=== PATIENT | male | born 1935 | race Caucasian/White ===

== ENCOUNTER 2018-07-07 06:21 | Day surgery (SDC) | payer BC, MEDICARE ==
[2018-07-07] MEDS ORDERED: fentaNYL 100 MCG/2 ML SDV ONE (07:13)
[2018-07-07] MEDS ORDERED: Propofol 200 MG/20 ML SDV ONE (07:14)
[2018-07-07] MEDS ORDERED: Sodium Chloride 0.9% 1,000 ML IV SCH (07:30)
[2018-07-07] MEDS ORDERED: Glycopyrrolate 0.2 MG/ML 5 ML MDV ONE (08:04)
[2018-07-07] MEDS ORDERED: Barium Sulfate 105% w/v Susp 1,900 ML Bottle RECTAL ONE (10:47)
[2018-07-07 11:25] VITALS: BP 142/73
--- NOTE | 2018-07-07 11:28 | CR ---
Barium Enema Comp CLINICAL HISTORY: Incomplete colonoscopy FINDINGS: There is retrograde flow of barium from rectum to right colon and an ileocolic anastomosis. There is no evidence of obstruction. There are a few tiny diverticula. No persistent filling defects are identified. Postevacuation film shows good clearing of left colonic contents. There is some mode rate to gaseous distention of small bowel related to colonoscopy. IMPRESSION: Right-sided ileocolic anastomosis No evidence of annular constricting lesion or persistent filling defects Minimal scattered small diverticula
--- NOTE | 2018-07-25 11:49 | OR ---
DATE OF PROCEDURE: 07/07/2018 PROCEDURES: 1. EGD. 2. Colonoscopy. FINDINGS: 1. Normal EGD. 2. Normal colonoscopy. COMPLICATIONS: None. SERVICE COUNSELOR: None. PREOPERATIVE DIAGNOSIS: Unintentional weight loss. POSTOPERATIVE DIAGNOSIS: Unintentional weight loss. RISKS: Risks, benefits, alternatives, and limitations including, but not limited to infection, bleeding, and perforation were explained to the patient, who wished to proceed. PROCEDURE IN DETAIL: The patient was placed in left lateral decubitus position. The EGD scope was introduced and advanced atraumatically to the second part of the duodenum. No abnormalities were noted. The scope was brought back and retroflexed. No hiatal hernia. No ulcerations. No significant reflux in the esophagus. The esophagus was normal. There was no evidence of old or new blood. No masses. Colonoscopy was then performed next. Digital rectal exam was performed. The scope was introduced and advanced atraumatically to the ileocecal valve. The scope was brought back to the ascending, transverse, descending colon, and retroflexed. No evidence of old or new blood. No masses. No polyps. No evidence or etiology of the unintentional weight loss. No abnormalities and retroflexed. The patient tolerated the procedure well. Dennis Haley MD /[id number]
== END 2018-07-07 11:45 | disposition home or self-care (01) ==
LOC: JP.SDS 06:21
PROVIDERS: ATTEND Surgery
DX: R63.4 Abnormal weight loss (principal); E03.9 Hypothyroidism, unspecified; I25.10 Atherosclerotic heart disease of native coronary artery without angina pectoris; I10 Essential (primary) hypertension; E78.5 Hyperlipidemia, unspecified; Z91.041 Radiographic dye allergy status; Z91.018 Allergy to other foods; R14.3 Flatulence; R10.9 Unspecified abdominal pain; E78.00 Pure hypercholesterolemia, unspecified; J44.9 Chronic obstructive pulmonary disease, unspecified; Z79.899 Other long term (current) drug therapy
CPT/HCPCS: 36415; 43235; 45378; 74176; 74270; 80048; 85025; 96360; 96361; 99284; J2704; J3010; J3490; J7030

== ENCOUNTER 2018-07-07 20:34 | Emergency (ER) | payer BC ==
[2018-07-07] MEDS ORDERED: HYDROmorphone 0.5 MG/0.5 ML Syringe IVPUSH ONE (20:59)
[2018-07-07] MEDS ORDERED: Ondansetron 4 MG/2 ML SDV IVPUSH ONE (20:59)
[2018-07-07] MEDS ORDERED: Sodium Chloride 0.9% 1,000 ML IV SCH (21:00)
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
[2018-07-07 22:10] VITALS: BP 136/53
== END 2018-07-07 22:50 | disposition home or self-care (01) ==
LOC: JP.ED 20:34
DX: R14.3 Flatulence (principal); R10.9 Unspecified abdominal pain; E78.00 Pure hypercholesterolemia, unspecified; I10 Essential (primary) hypertension; J44.9 Chronic obstructive pulmonary disease, unspecified; E03.9 Hypothyroidism, unspecified; Z79.899 Other long term (current) drug therapy
CPT/HCPCS: 36415; 74176; 80048; 85025; 96360; 96361; 99284; J7030

== ENCOUNTER 2021-01-03 22:04 | Emergency (ER) | payer BC ==
[2021-01-03] MEDS ORDERED: Sodium Chloride 0.9% 10 ML Syringe FLUSH PRN (22:42)
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
[2021-01-03] MEDS ORDERED: Lactated Ringers 1,000 ML IV ONE (23:24)
[2021-01-03] MEDS ORDERED: Acetaminophen 500 MG Tab PO ONE (23:58)
[2021-01-04 00:12] VITALS: BP 120/51; PULSE 76
== END 2021-01-04 01:00 | disposition home or self-care (01) ==
LOC: JP.ED 22:04
DX: N30.90 Cystitis, unspecified without hematuria (principal); E87.6 Hypokalemia; R19.7 Diarrhea, unspecified; I25.10 Atherosclerotic heart disease of native coronary artery without angina pectoris; E78.00 Pure hypercholesterolemia, unspecified; I10 Essential (primary) hypertension; J44.9 Chronic obstructive pulmonary disease, unspecified; E03.9 Hypothyroidism, unspecified; Z91.041 Radiographic dye allergy status; Z91.030 Bee allergy status; Z79.899 Other long term (current) drug therapy; Z79.82 Long term (current) use of aspirin; Z20.822 Contact with and (suspected) exposure to COVID-19
CPT/HCPCS: 36415; 51798; 80048; 81001; 85027; 87046; 87086; 87493; 87635; 87899; 99283; 99284; A9270; J7120; U0002

== ENCOUNTER 2021-09-15 07:41 | Day surgery (SDC) | payer BC, MEDICARE ==
[2021-09-15] MEDS ORDERED: Dextrose 5%-Lactated Ringers 1,000 ML IV SCH (07:45)
[2021-09-15] MEDS ORDERED: fentaNYL 100 MCG/2 ML SDV ONE (07:47)
[2021-09-15] MEDS ORDERED: Midazolam 1 MG/ML 2 ML SDV ONE (07:47)
[2021-09-15] MEDS ORDERED: Propofol 200 MG/20 ML SDV ONE (07:47)
[2021-09-15] MEDS ORDERED: Bupivacaine 0.5% 50 ML MDV ONE (08:18)
[2021-09-15] MEDS ORDERED: Lidocaine 1% with EPINEPHrine 1:100,000 50 ML MDV ONE (08:18)
[2021-09-15] MEDS ORDERED: Diltiazem 180 MG Cap.CD PO ONE (08:30)
[2021-09-15] MEDS ORDERED: ceFAZolin 2 GM in Premix Bag 1 BAG IV ONE (08:30)
[2021-09-15] MEDS ORDERED: Bacitracin Oint 1 GM U/D Packet ONE (10:53)
[2021-09-15 12:16] VITALS: BP 129/61; PULSE 44
--- NOTE | 2021-09-17 23:42 | OR ---
DATE OF PROCEDURE: 09/15/2021 SURGEON: Moreno Jackson MD PREOPERATIVE DIAGNOSIS: Atypical nevi involving right cheek and midback. POSTOPERATIVE DIAGNOSIS: Atypical nevi involving right cheek and midback. PROCEDURES: 1. Excision of atypical nevus, right cheek, with layered closure ([id number], [id number]). 2. Excision of atypical nevus, midback, with layered closure ([id number], [id number]). ANESTHESIA: Local plus IV sedation. INDICATION FOR PROCEDURE: This is an 86-year-old male presenting with 2 atypical nevi, one from the lower right cheek and the other in the midback. After preoperative evaluation and discussion, he wished to proceed with excision of these. Potential risks including bleeding, infection, and possible need for re-excision were gone over and the patient wishes to proceed. PROCEDURE IN DETAIL: Patient was taken to the operating room, placed in a left lateral decubitus position. The right cheek and midback areas were then both prepped and draped, and the areas anesthetized with 1% lidocaine mixed with Marcaine. Initially, the right cheek excision was addressed. Elliptical incision in the lines of skin wrinkles was then made maintaining a small margin of normal tissue around the excised lesion and this was then removed intact and the wound was then closed with some 4-0 Vicryl stitch deep and then 5-0 Prolene skin stitch. Attention was taken to the mid back area. A similar incision in the transverse orientation was made there and the incision then closed with the same set of sutures, and the dressings were then applied. The right cheek lesion had a lesion plus margin length of 3.2 cm and incision length of 3.6 cm. Mid back had a lesion plus margin length of 1.8 cm and an incision closure of 3.0 cm. There were no evident complications. Moreno Jackson MD /[id number]
== END 2021-09-15 12:40 | disposition home or self-care (01) ==
LOC: JP.SDS 07:41
PROVIDERS: ATTEND Surgery
DX: L82.0 Inflamed seborrheic keratosis (principal); L82.1 Other seborrheic keratosis; I10 Essential (primary) hypertension; I25.2 Old myocardial infarction; I25.10 Atherosclerotic heart disease of native coronary artery without angina pectoris; E78.5 Hyperlipidemia, unspecified; J43.9 Emphysema, unspecified
CPT/HCPCS: 11402; 11444; 12032; 12052; A9270; J0690; J2250; J2704; J3010; J3490; J7121

== ENCOUNTER 2022-07-02 08:16 | Day surgery (SDC) | payer BC, MEDICARE, OTHER ==
[~2022-07-02 08:16] MED LIST: Dexamethasone 4 MG/ML SDV ONE; Glycopyrrolate 0.2 MG/ML 5 ML MDV ONE; Ketorolac 30 MG/ML SDV ONE; Neostigmine Methylsulfate 1 MG/ML 5 ML Syringe ONE; Ondansetron 4 MG/2 ML SDV ONE; Propofol 200 MG/20 ML SDV ONE; Rocuronium 50 MG/5 ML Vial ONE; Succinylcholine 200 MG/10 ML MDV ONE; Sugammadex Sodium 200 MG/2 ML VIAL ONE; fentaNYL 250 MCG/5 ML SDV ONE
[2022-07-02] MEDS ORDERED: fentaNYL 100 MCG/2 ML SDV ONE (09:00)
[2022-07-02] MEDS ORDERED: Propofol 200 MG/20 ML SDV ONE (09:00)
[2022-07-02] MEDS ORDERED: Lactated Ringers 1,000 ML IV SCH (09:00)
[2022-07-02 12:06] VITALS: BP 133/55; PULSE 80
== END 2022-07-02 12:08 | disposition home or self-care (01) ==
LOC: JP.SDS 08:16
PROVIDERS: ATTEND Family Medicine
DX: K29.40 Chronic atrophic gastritis without bleeding (principal); I10 Essential (primary) hypertension; I25.10 Atherosclerotic heart disease of native coronary artery without angina pectoris; I49.3 Ventricular premature depolarization; J44.9 Chronic obstructive pulmonary disease, unspecified; R63.4 Abnormal weight loss; E03.9 Hypothyroidism, unspecified; I25.2 Old myocardial infarction; I73.9 Peripheral vascular disease, unspecified; Z79.810 Long term (current) use of selective estrogen receptor modulators (SERMs); Z79.891 Long term (current) use of opiate analgesic; Z87.891 Personal history of nicotine dependence; Z91.030 Bee allergy status; Z68.29 Body mass index [BMI] 29.0-29.9, adult
CPT/HCPCS: 43235; J2704; J3010; J7120; J0330; J1100; J1885; J2405; J2710; J3490

== ENCOUNTER 2022-10-28 22:06 | Emergency (ER) | payer BC ==
[2022-10-28 22:55] VITALS: BP 156/49; PULSE 60
== END 2022-10-28 23:08 | disposition home or self-care (01) ==
LOC: JP.ED 22:06
DX: I97.621 Postprocedural hematoma of a circulatory system organ or structure following other procedure (principal); I25.10 Atherosclerotic heart disease of native coronary artery without angina pectoris; E78.00 Pure hypercholesterolemia, unspecified; I10 Essential (primary) hypertension; J44.9 Chronic obstructive pulmonary disease, unspecified; E03.9 Hypothyroidism, unspecified; Z95.2 Presence of prosthetic heart valve; Z91.030 Bee allergy status; Z91.041 Radiographic dye allergy status; Z79.82 Long term (current) use of aspirin; Z79.899 Other long term (current) drug therapy
CPT/HCPCS: 99283

== ENCOUNTER 2024-06-04 13:07 | Emergency (ER) | payer BC ==
[2024-06-04 13:36] VITALS: BP 122/52; PULSE 56
[2024-06-04 13:41] LABS: BASOPHILS ABSOLUTE AUTO 0.01 K/uL (0.00-0.10); BASOPHILS PERCENT AUTO 0.1 % (0.1-1.3); EOSINOPHILS ABSOLUTE AUTO 0.06 K/uL (0.00-0.40); EOSINOPHILS PERCENT AUTO 0.7 % (0.0-5.4); HEMATOCRIT 29.4 % (38.4-49.7); HEMOGLOBIN 10.2 g/dL (12.9-16.9); IMMATURE GRAN ABSOLUTE AUTO 0.05 K/uL (0.00-0.23); IMMATURE GRAN PERCENT AUTO 0.6 % (0.0-0.7); LYMPHOCYTES ABSOLUTE AUTO 0.99 K/uL (0.8-3.3); LYMPHOCYTES PERCENT AUTO 11.1 % (11.4-47.7); MEAN CORPUSCULAR HGB CONC 34.7 g/dL (31.6-35.5); MEAN CORPUSCULAR VOLUME 92.2 fL (81.4-99.0); MONOCYTES ABSOLUTE AUTO 0.44 K/uL (0.20-0.90); NEUTROPHILS ABSOLUTE AUTO 7.33 K/uL (1.0-7.6); NEUTROPHILS PERCENT AUTO 82.5 % (40.0-78.1); PLATELET COUNT,PLT 170 K/uL (130-375); RED BLOOD CELL COUNT 3.19 M/uL (4.14-5.76); WHITE BLOOD CELL COUNT,WBC 8.9 K/uL (3.2-11.0)
[2024-06-04 14:01] LABS: A/G RATIO 0.6 (1.2-2.2); ALANINE AMINOTRANSFERASE,ALT 30 U/L (12-78); ALBUMIN 2.5 g/dL (3.4-5.0); ALKALINE PHOSPHATASE 124 U/L (46-116); ASPARTATE AMNIOTRANSFERASE,AST 34 U/L (15-37); BILIRUBIN TOTAL 0.4 mg/dL (0.2-1.0); BLOOD UREA NITROGEN,BUN 37 mg/dL (7-18); C-REACTIVE PROTEIN 11.62 mg/dL (<0.50); CALCIUM 8.1 mg/dL (8.5-10.1); CARBON DIOXIDE,CO2 26 mmol/L (21-32); CHLORIDE,CL 100 mmol/L (100-108); CREATININE 1.3 mg/dL (0.8-1.3); EST CRCL DRUG DOSING (CG) 33.29 mL/min; ESTIMATED GFR 53 mL/min (>60); GLUCOSE RANDOM 99 mg/dL (74-106); PROTEIN TOTAL,TP 6.7 g/dL (6.4-8.2); SODIUM,NA 132 mmol/L (140-148)
== END 2024-06-04 16:11 | disposition home or self-care (01) ==
LOC: JP.ED 13:07
DX: R10.9 Unspecified abdominal pain (principal); J44.9 Chronic obstructive pulmonary disease, unspecified; I25.10 Atherosclerotic heart disease of native coronary artery without angina pectoris; E03.9 Hypothyroidism, unspecified; Z91.030 Bee allergy status; Z91.041 Radiographic dye allergy status; Z79.890 Hormone replacement therapy; Z79.82 Long term (current) use of aspirin; Z79.899 Other long term (current) drug therapy; Z95.1 Presence of aortocoronary bypass graft; Z95.5 Presence of coronary angioplasty implant and graft; Z87.891 Personal history of nicotine dependence
CPT/HCPCS: 36415; 74176; 74176-26; 80053; 83690; 84484; 85025; 86140; 99284

== ENCOUNTER 2024-09-13 07:06 | Inpatient (IN) | payer MEDICARE, BC ==
[2024-09-13] MEDS ORDERED: Lactated Ringers 1,000 ML IV SCH (07:15)
[2024-09-13] MEDS: Nitroglycerin 0.4 MG Tab.SL SL ONE (07:30)
[2024-09-13] MEDS: cefTRIAXone 2 GM in Sodium Chloride 0.9% 100 ML IV SCH (07:32)
[2024-09-13 07:45] LABS: BASE EXCESS ARTERIAL -0.9 mm/L; BICARBONATE,ARTERIAL 21.8 mmol/L (22.0-26.0); CARBOXYHEMOGLOBIN 3.1 % (0.0-1.6); METHEMOGLOBIN 0.5 %; O2 SATURATION ARTERIAL 98.4 % (95.0-98.0); OXYHEMOGLOBIN 94.9 %; TOTAL HEMOGLOBIN 9.4 g/dL (13.5-18.0)
[2024-09-13 07:49] LABS: BASOPHILS PERCENT AUTO 0.1 % (0.1-1.3); EOSINOPHILS ABSOLUTE AUTO 0.16 K/uL (0.00-0.40); EOSINOPHILS PERCENT AUTO 1.8 % (0.0-5.4); HEMATOCRIT 28.4 % (38.4-49.7); HEMOGLOBIN 9.1 g/dL (12.9-16.9); IMMATURE GRAN ABSOLUTE AUTO 0.04 K/uL (0.00-0.23); IMMATURE GRAN PERCENT AUTO 0.5 % (0.0-0.7); LYMPHOCYTES ABSOLUTE AUTO 0.84 K/uL (0.8-3.3); LYMPHOCYTES PERCENT AUTO 9.5 % (11.4-47.7); MEAN CORPUSCULAR HEMOGLOBIN 30.2 pg (31.6-35.5); MEAN CORPUSCULAR VOLUME 94.4 fL (81.4-99.0); MONOCYTES ABSOLUTE AUTO 0.72 K/uL (0.20-0.90); MONOCYTES PERCENT AUTO 8.2 % (3.3-12.6); NEUTROPHILS ABSOLUTE AUTO 7.05 K/uL (1.0-7.6); NEUTROPHILS PERCENT AUTO 79.9 % (40.0-78.1); PLATELET COUNT,PLT 188 K/uL (130-375); RED BLOOD CELL COUNT 3.01 M/uL (4.14-5.76); WHITE BLOOD CELL COUNT,WBC 8.8 K/uL (3.2-11.0)
[2024-09-13 07:50] LABS: BASOPHILS ABSOLUTE AUTO 0.01 K/uL (0.00-0.10)
[2024-09-13 08:14] LABS: LACTIC ACID 1.3 mmol/L (0.4-2.0)
[2024-09-13 08:20] LABS: A/G RATIO 0.5 (1.2-2.2); ALANINE AMINOTRANSFERASE,ALT 23 U/L (12-78); ALBUMIN 2.5 g/dL (3.4-5.0); ALKALINE PHOSPHATASE 138 U/L (46-116); ASPARTATE AMNIOTRANSFERASE,AST 26 U/L (15-37); BILIRUBIN TOTAL 0.4 mg/dL (0.2-1.0); BLOOD UREA NITROGEN,BUN 28 mg/dL (7-18); C-REACTIVE PROTEIN 2.57 mg/dL (<0.50); CALCIUM 8.7 mg/dL (8.5-10.1); CARBON DIOXIDE,CO2 25 mmol/L (21-32); CHLORIDE,CL 106 mmol/L (100-108); EST CRCL DRUG DOSING (CG) 48.27 mL/min; ESTIMATED GFR 72 mL/min (>60); GLUCOSE RANDOM 107 mg/dL (74-106); POTASSIUM,K 4.3 mmol/L (3.6-5.2); PROTEIN TOTAL,TP 7.3 g/dL (6.4-8.2); SODIUM,NA 139 mmol/L (140-148)
[2024-09-13 08:21] LABS: ANION GAP 12.3 mmol/L (5.0-14.0); TROPONIN I HIGH SENSITIVITY 11.1 pg/mL (<=60.3)
[2024-09-13] MEDS: Furosemide 40 MG/4 ML VIAL IVPUSH ONE ×2 (08:55→17:46)
[2024-09-13 09:04] LABS: CORONAVIRUS COVID-19 NAA NEGATIVE (NEGATIVE); INFLUENZA A NAA NEGATIVE (NEGATIVE); INFLUENZA B NAA NEGATIVE (NEGATIVE); RESPIRATORY SYNCYTIAL VIR NAA NEGATIVE (NEGATIVE)
[2024-09-13 09:30] LABS: APPEARANCE,URINE CLEAR (CLEAR); BILIRUBIN,URINE NEGATIVE (NEGATIVE); COLOR,URINE YELLOW (YELLOW); GLUCOSE,URINE NEGATIVE (NEGATIVE); KETONES,URINE NEGATIVE (NEGATIVE); LEUKOCYTE ESTERASE,URINE TRACE (NEGATIVE); NITRITE,URINE NEGATIVE (NEGATIVE); OCCULT BLOOD,URINE NEGATIVE (NEGATIVE); PH,URINE 5.5 (5.0-8.0); PROTEIN,URINE 30 mg/dL (NEGATIVE); UROBILINOGEN,URINE 0.2 EU/dL (0.2-1.0)
[2024-09-13 09:35] LABS: AMORPHOUS SEDIMENT,URINE NOT SEEN; BACTERIA,URINE NOT SEEN; EPITHELIAL CELLS,URINE FEW; MUCUS,URINE FEW; RBC,URINE 0-5 (0-5); WBC,URINE 0-5 (0-5)
[2024-09-13] MEDS ORDERED: Sennosides/Docusate Sodium 50-8.6 MG Tab PO PRN (12:51)
[2024-09-13] MEDS ORDERED: Acetaminophen 325 MG Tab PO PRN (12:51)
[2024-09-13] MEDS ORDERED: Magnesium Hydroxide 400 MG/5 ML Susp 30 ML Cup PO PRN (12:51)
[2024-09-13] MEDS ORDERED: Albuterol 0.083% 2.5 MG/3 ML Neb Soln NEB PRN (12:51)
[2024-09-13] MEDS ORDERED: Ondansetron 4 MG/2 ML SDV IV PRN (12:51)
[2024-09-13] MEDS ORDERED: Ondansetron 4 MG Tab.DIS PO PRN (12:51)
[2024-09-13] MEDS: Pramipexole 0.5 MG Tab PO SCH (13:50)
[2024-09-13] MEDS ORDERED: PRAMIPEXOLE DI HCL 0.125 MG PO SCH (14:00)
[2024-09-13] MEDS ORDERED: Furosemide 20 MG/2 ML VIAL IVPUSH ONE (17:00)
[2024-09-13] MEDS: Doxazosin 4 MG Tab PO SCH (17:44)
[2024-09-13] MEDS ORDERED: ATORVASTATIN 80 MG PO SCH (21:00)
[2024-09-13] MEDS: Melatonin 3 MG Tab PO PRN (21:01)
[2024-09-13] MEDS: atorvaSTATin 20 MG Tab PO SCH (21:02)
[2024-09-13] MEDS: Metoprolol Tartrate 50 MG Tab PO SCH (21:02)
[2024-09-13] MEDS: Finasteride 5 MG Tab PO SCH (21:07)
[2024-09-13] MEDS: Pantoprazole 40 MG Tab.CR PO SCH (21:07)
[2024-09-14 05:35] LABS: CALCIUM 8.6 mg/dL (8.5-10.1); CREATININE 1.1 mg/dL (0.8-1.3); EST CRCL DRUG DOSING (CG) 41.54 mL/min; POTASSIUM,K 3.5 mmol/L (3.6-5.2); TSH ULTRASENSITIVE 20.93 uIU/mL (0.358-3.740)
[2024-09-14 05:41] LABS: ANION GAP 10.5 mmol/L (5.0-14.0)
[2024-09-14] MEDS: Levothyroxine 100 MCG Tab PO SCH (07:32)
[2024-09-14] MEDS: Furosemide 40 MG/4 ML VIAL IVPUSH ONE (07:32)
[2024-09-14] MEDS: Cyanocobalamin (Vitamin B12) 1,000 MCG Tab SL SCH (08:21)
[2024-09-14] MEDS: Aspirin 81 MG Tab.EC PO SCH (08:21)
[2024-09-14] MEDS: Potassium Chloride 20 MEQ Tab.ER PO ONE (08:24)
[2024-09-14] MEDS ORDERED: CYANOCOBALAMIN 500 MCG SL SCH (09:00)
[2024-09-14] MEDS ORDERED: Non-Formulary Medication 1 Each (Levothyroxine Sodium [Synthroid] 150 MCG Tablet) PO SCH (09:00)
[2024-09-14] MEDS: Furosemide 20 MG/2 ML VIAL IVPUSH ONE (15:27)
[2024-09-14 18:03] VITALS: PULSE 60
[2024-09-15 05:14] LABS: CALCIUM 8.8 mg/dL (8.5-10.1); EST CRCL DRUG DOSING (CG) 45.7 mL/min; POTASSIUM,K 3.8 mmol/L (3.6-5.2)
[2024-09-15 05:19] LABS: ANION GAP 10.8 mmol/L (5.0-14.0)
[2024-09-15] MEDS: Furosemide 20 MG/2 ML VIAL IVPUSH ONE (08:19)
[2024-09-15] MEDS: FLU (Fluad Triv) TS24-25 (65UP)/MF59C/PF 45 MCG/0.5 ML Syringe IM ONE (09:33)
[2024-09-15 11:33] VITALS: BP 113/82
== END 2024-09-15 13:02 | disposition home health service (06) | DRG 291 ==
LOC: JP.ED 07:06 → JP.MS 12:03
PROVIDERS: ADMIT Internal Medicine; ATTEND Internal Medicine
PROC: 4A033R1 Measurement of Arterial Saturation, Peripheral, Percutaneous Approach (ICD-10-PCS; principal; 2024-09-13)
DX: I11.0 Hypertensive heart disease with heart failure (principal); J96.01 Acute respiratory failure with hypoxia; I50.9 Heart failure, unspecified; I49.5 Sick sinus syndrome; Z79.890 Hormone replacement therapy; I25.10 Atherosclerotic heart disease of native coronary artery without angina pectoris; E03.9 Hypothyroidism, unspecified; J44.9 Chronic obstructive pulmonary disease, unspecified; M10.9 Gout, unspecified; F41.9 Anxiety disorder, unspecified; N40.1 Benign prostatic hyperplasia with lower urinary tract symptoms; Z91.030 Bee allergy status; Z91.041 Radiographic dye allergy status; Z79.899 Other long term (current) drug therapy; Z79.82 Long term (current) use of aspirin; Z95.5 Presence of coronary angioplasty implant and graft; Z86.0100 Personal history of colon polyps, unspecified; Z98.49 Cataract extraction status, unspecified eye; Z95.1 Presence of aortocoronary bypass graft; Z98.890 Other specified postprocedural states; Z87.891 Personal history of nicotine dependence; Z95.0 Presence of cardiac pacemaker
CPT/HCPCS: 0241U; 36415; 36600; 71045; 80048; 80053; 81001; 82803; 83605; 83735; 83880; 84145; 84439; 84443; 84484; 85025; 86140; 87040; 90653; 96365; 96375; 97161; 97530; 99222; 99232; 99239; 99285; A9270-GY; G0008; J0696; J1940; J3490

== ENCOUNTER 2025-03-01 01:51 | Observation (INO) | payer BC, MEDICARE ==
[2025-03-01 02:14] LABS: BASOPHILS ABSOLUTE AUTO 0.03 K/uL (0.00-0.10); BASOPHILS PERCENT AUTO 0.3 % (0.1-1.3); EOSINOPHILS ABSOLUTE AUTO 0.16 K/uL (0.00-0.40); EOSINOPHILS PERCENT AUTO 1.7 % (0.0-5.4); HEMATOCRIT 31.4 % (38.4-49.7); HEMOGLOBIN 10.1 g/dL (12.9-16.9); IMMATURE GRAN ABSOLUTE AUTO 0.03 K/uL (0.00-0.23); IMMATURE GRAN PERCENT AUTO 0.3 % (0.0-0.7); LYMPHOCYTES ABSOLUTE AUTO 1.94 K/uL (0.8-3.3); LYMPHOCYTES PERCENT AUTO 20.5 % (11.4-47.7); MEAN CORPUSCULAR HEMOGLOBIN 28.5 pg (31.6-35.5); MEAN CORPUSCULAR HGB CONC 32.2 g/dL (31.6-35.5); MEAN CORPUSCULAR VOLUME 88.7 fL (81.4-99.0); MONOCYTES ABSOLUTE AUTO 0.72 K/uL (0.20-0.90); MONOCYTES PERCENT AUTO 7.6 % (3.3-12.6); NEUTROPHILS ABSOLUTE AUTO 6.59 K/uL (1.0-7.6); NEUTROPHILS PERCENT AUTO 69.6 % (40.0-78.1); PLATELET COUNT,PLT 221 K/uL (130-375); RED BLOOD CELL COUNT 3.54 M/uL (4.14-5.76); WHITE BLOOD CELL COUNT,WBC 9.5 K/uL (3.2-11.0)
[2025-03-01 02:44] LABS: A/G RATIO 0.5 (1.2-2.2); ALANINE AMINOTRANSFERASE,ALT 20 U/L (12-78); ALBUMIN 2.6 g/dL (3.4-5.0); ALKALINE PHOSPHATASE 109 U/L (46-116); ASPARTATE AMNIOTRANSFERASE,AST 33 U/L (15-37); BILIRUBIN TOTAL 0.3 mg/dL (0.2-1.0); BLOOD UREA NITROGEN,BUN 29 mg/dL (7-18); CALCIUM 9.1 mg/dL (8.5-10.1); CARBON DIOXIDE,CO2 27 mmol/L (21-32); CHLORIDE,CL 102 mmol/L (100-108); EST CRCL DRUG DOSING (CG) 45.86 mL/min; ESTIMATED GFR 72 mL/min (>60); GLUCOSE RANDOM 101 mg/dL (74-106); POTASSIUM,K 4.2 mmol/L (3.6-5.2); PROTEIN TOTAL,TP 7.7 g/dL (6.4-8.2); SODIUM,NA 139 mmol/L (140-148); TROPONIN I HIGH SENSITIVITY 18.7 pg/mL (<=60.3)
[2025-03-01 02:45] LABS: ANION GAP 14.2 mmol/L (5.0-14.0)
[2025-03-01] MEDS: Furosemide 20 MG/2 ML VIAL IVPUSH ONE (02:56)
[2025-03-01] MEDS: Sodium Chloride 0.9% 100 ML IV ONE (04:01)
[2025-03-01] MEDS: Iopamidol 612 MG/ML 100 ML Bottle IV ONE (04:01)
[2025-03-01 04:30] LABS: APPEARANCE,URINE CLEAR (CLEAR); BILIRUBIN,URINE NEGATIVE (NEGATIVE); COLOR,URINE YELLOW (YELLOW); GLUCOSE,URINE NEGATIVE (NEGATIVE); KETONES,URINE NEGATIVE (NEGATIVE); LEUKOCYTE ESTERASE,URINE NEGATIVE (NEGATIVE); NITRITE,URINE NEGATIVE (NEGATIVE); OCCULT BLOOD,URINE NEGATIVE (NEGATIVE); PROTEIN,URINE 30 mg/dL (NEGATIVE); UROBILINOGEN,URINE 0.2 EU/dL (0.2-1.0)
[2025-03-01 04:43] LABS: AMORPHOUS SEDIMENT,URINE NOT SEEN; BACTERIA,URINE FEW; EPITHELIAL CELLS,URINE RARE; MUCUS,URINE NOT SEEN; RBC,URINE 0-5 (0-5); WBC,URINE 0-5 (0-5)
[2025-03-01] MEDS: Morphine 2 MG/ML SYRINGE IVPUSH ONE (05:04)
[2025-03-01] MEDS: Ondansetron 4 MG/2 ML SDV IVPUSH ONE (05:04)
[2025-03-01] MEDS ORDERED: Ondansetron 4 MG/2 ML SDV IV PRN (05:49)
[2025-03-01] MEDS ORDERED: traMADol 50 MG Tab PO PRN (05:49)
[2025-03-01] MEDS ORDERED: Sennosides/Docusate Sodium 50-8.6 MG Tab PO PRN (05:49)
[2025-03-01] MEDS ORDERED: Ondansetron 4 MG Tab.DIS PO PRN (05:49)
[2025-03-01] MEDS ORDERED: Magnesium Hydroxide 400 MG/5 ML Susp 30 ML Cup PO PRN (05:49)
[2025-03-01] MEDS ORDERED: Melatonin 3 MG Tab PO PRN (05:49)
[2025-03-01] MEDS: Metoprolol Tartrate 50 MG Tab PO SCH (06:35)
[2025-03-01] MEDS: Enoxaparin 40 MG/0.4 ML Syringe SUBCUT SCH (06:36)
[2025-03-01] MEDS: Metoprolol Tartrate 50 MG Tab ONE (06:39)
[2025-03-01] MEDS: Levothyroxine 100 MCG Tab PO SCH (08:23)
[2025-03-01] MEDS: Tamsulosin 0.4 MG Cap.ER PO SCH (08:23)
[2025-03-01] MEDS: Ferrous Sulfate 325 MG Tab PO SCH (08:23)
[2025-03-01] MEDS: Acetaminophen 500 MG Tab PO SCH (08:24)
[2025-03-01] MEDS: Aspirin 81 MG Tab.EC PO SCH (08:24)
[2025-03-01] MEDS: Pramipexole 0.5 MG Tab PO SCH (08:24)
[2025-03-01] MEDS: Cyanocobalamin (Vitamin B12) 1,000 MCG Tab PO SCH (08:28)
[2025-03-01] MEDS ORDERED: TOBRAMYCIN 0.3% EYEBOTH SCH (09:00)
[2025-03-01 11:17] VITALS: BP 162/101; PULSE 63
[2025-03-01] MEDS ORDERED: Doxazosin 4 MG Tab PO SCH (17:00)
[2025-03-01] MEDS ORDERED: Finasteride 5 MG Tab PO SCH (21:00)
[2025-03-01] MEDS ORDERED: Pantoprazole 40 MG Tab.CR PO SCH (21:00)
[2025-03-01] MEDS ORDERED: atorvaSTATin 20 MG Tab PO SCH (21:00)
[2025-03-02] MEDS ORDERED: Enoxaparin 40 MG/0.4 ML Syringe SUBCUT SCH (06:00)
== END 2025-03-01 13:45 | disposition home health service (06) ==
LOC: JP.ED 01:51 → JP.MS 05:07
PROVIDERS: ADMIT Registered Nurse; ATTEND Internal Medicine
DX: I11.0 Hypertensive heart disease with heart failure (principal); I50.9 Heart failure, unspecified; N40.0 Benign prostatic hyperplasia without lower urinary tract symptoms; S22.080A Wedge compression fracture of T11-T12 vertebra, initial encounter for closed fracture; I25.10 Atherosclerotic heart disease of native coronary artery without angina pectoris; J44.9 Chronic obstructive pulmonary disease, unspecified; E03.9 Hypothyroidism, unspecified; Z79.890 Hormone replacement therapy; Z79.899 Other long term (current) drug therapy; X58.XXXA Exposure to other specified factors, initial encounter
CPT/HCPCS: 36415; 71045; 71045-26; 71275; 80053; 81001; 83605; 83735; 83880; 84443; 84484; 85025; 85379; 87428-QW; 93005; 93010; 96372; 96374; 96375; 97161-GP; 99285; 99285-25; A9270-GY; G0378; J1650; J1940; J2270; J2405; J3360; Q9967

== ENCOUNTER 2025-03-21 08:55 | Observation (INO) | payer BC ==
[2025-03-21 10:12] LABS: BASOPHILS PERCENT AUTO 0.2 % (0.1-1.3); EOSINOPHILS ABSOLUTE AUTO 0.03 K/uL (0.00-0.40); EOSINOPHILS PERCENT AUTO 0.3 % (0.0-5.4); HEMATOCRIT 26.9 % (38.4-49.7); HEMOGLOBIN 8.6 g/dL (12.9-16.9); IMMATURE GRAN PERCENT AUTO 0.2 % (0.0-0.7); LYMPHOCYTES ABSOLUTE AUTO 1.86 K/uL (0.8-3.3); LYMPHOCYTES PERCENT AUTO 20.4 % (11.4-47.7); MEAN CORPUSCULAR HEMOGLOBIN 28.4 pg (31.6-35.5); MEAN CORPUSCULAR VOLUME 88.8 fL (81.4-99.0); MONOCYTES ABSOLUTE AUTO 0.73 K/uL (0.20-0.90); NEUTROPHILS ABSOLUTE AUTO 6.46 K/uL (1.0-7.6); NEUTROPHILS PERCENT AUTO 70.9 % (40.0-78.1); PLATELET COUNT,PLT 171 K/uL (130-375); RED BLOOD CELL COUNT 3.03 M/uL (4.14-5.76); WHITE BLOOD CELL COUNT,WBC 9.1 K/uL (3.2-11.0)
[2025-03-21 10:13] LABS: BASOPHILS ABSOLUTE AUTO 0.02 K/uL (0.00-0.10); IMMATURE GRAN ABSOLUTE AUTO 0.02 K/uL (0.00-0.23)
[2025-03-21 10:28] LABS: CALCIUM 8.4 mg/dL (8.5-10.1); CREATININE 1.1 mg/dL (0.8-1.3); EST CRCL DRUG DOSING (CG) 34.25 mL/min; POTASSIUM,K 3.8 mmol/L (3.6-5.2)
[2025-03-21 10:29] LABS: ANION GAP 10.8 mmol/L (5.0-14.0)
[2025-03-21] MEDS ORDERED: Magnesium Hydroxide 400 MG/5 ML Susp 30 ML Cup PO PRN (16:34)
[2025-03-21] MEDS ORDERED: LORazepam 2 MG/ML SDV IVPUSH PRN (16:34)
[2025-03-21] MEDS ORDERED: Acetaminophen 325 MG Tab PO PRN (16:34)
[2025-03-21] MEDS ORDERED: Ondansetron 4 MG Tab.DIS PO PRN (16:34)
[2025-03-21] MEDS ORDERED: Sennosides/Docusate Sodium 50-8.6 MG Tab PO PRN (16:34)
[2025-03-21] MEDS ORDERED: Ondansetron 4 MG/2 ML SDV IV PRN (16:34)
[2025-03-21] MEDS ORDERED: Acetaminophen/HYDROcodone 325-5 MG Tab PO PRN (16:34)
[2025-03-22 05:37] VITALS: BP 170/53; PULSE 59
[2025-03-22 06:07] LABS: HEMATOCRIT 31.7 % (38.4-49.7); HEMOGLOBIN 10.3 g/dL (12.9-16.9); MEAN CORPUSCULAR HEMOGLOBIN 28.5 pg (31.6-35.5); MEAN CORPUSCULAR HGB CONC 32.5 g/dL (31.6-35.5); MEAN CORPUSCULAR VOLUME 87.8 fL (81.4-99.0); RED BLOOD CELL COUNT 3.61 M/uL (4.14-5.76); WHITE BLOOD CELL COUNT,WBC 10.4 K/uL (3.2-11.0)
[2025-03-22 06:31] LABS: A/G RATIO 0.5 (1.2-2.2); ALANINE AMINOTRANSFERASE,ALT 27 U/L (12-78); ALBUMIN 2.1 g/dL (3.4-5.0); ALKALINE PHOSPHATASE 128 U/L (46-116); ASPARTATE AMNIOTRANSFERASE,AST 38 U/L (15-37); BILIRUBIN TOTAL 0.5 mg/dL (0.2-1.0); BLOOD UREA NITROGEN,BUN 17 mg/dL (7-18); CALCIUM 8.5 mg/dL (8.5-10.1); CARBON DIOXIDE,CO2 28 mmol/L (21-32); CHLORIDE,CL 104 mmol/L (100-108); CREATININE 0.9 mg/dL (0.8-1.3); EST CRCL DRUG DOSING (CG) 48.59 mL/min; ESTIMATED GFR 82 mL/min (>60); GLUCOSE RANDOM 85 mg/dL (74-106); PROTEIN TOTAL,TP 6.4 g/dL (6.4-8.2); SODIUM,NA 139 mmol/L (140-148)
== END 2025-03-22 09:30 | disposition home or self-care (01) ==
LOC: JP.ED 08:55 → JP.MS 15:14
PROVIDERS: ADMIT Hospitalist; ATTEND Hospitalist
DX: D62 Acute posthemorrhagic anemia (principal); R53.1 Weakness; E78.5 Hyperlipidemia, unspecified; N40.0 Benign prostatic hyperplasia without lower urinary tract symptoms; E03.9 Hypothyroidism, unspecified; G25.81 Restless legs syndrome; I11.0 Hypertensive heart disease with heart failure; I50.9 Heart failure, unspecified; Z79.82 Long term (current) use of aspirin; Z79.899 Other long term (current) drug therapy; Z79.890 Hormone replacement therapy; Z91.030 Bee allergy status
CPT/HCPCS: 36415; 36430; 80048; 80053; 85025; 85027; 86850; 86900; 86901; 86920; 86922; 99223; 99239; 99285; G0378; P9016